=== PATIENT | female | born 1950 | race Two or more races ===

== ENCOUNTER 2022-11-17 08:13 | Outpatient (CLI) | payer OTHER | END 2022-11-17 08:18 | disposition home or self-care (01) | LOC: RX STUDY 08:13 | PROVIDERS: ATTEND Internal Medicine Gastroenterology | DX: Q40.1 Congenital hiatus hernia (principal) ==

== ENCOUNTER 2025-03-20 08:16 | Outpatient (CLI) | payer OTHER | END 2025-03-20 08:24 | disposition home or self-care (01) | LOC: TOM 08:16 | PROVIDERS: ATTEND Internal Medicine Gastroenterology | DX: R19.5 Other fecal abnormalities (principal) ==